=== PATIENT | female | born 1965 | race Caucasian/White ===

== ENCOUNTER → 2017-01-03 | Outpatient (CLI) | payer BC | LOC: LABPAT 08:52 | PROVIDERS: ATTEND Orthopaedic Surgery Orthopaedic Surgery of the Spine | DX: Z01.812 Encounter for preprocedural laboratory examination (principal) | CPT/HCPCS: 87070 ==

== ENCOUNTER 2017-01-14 08:38 | Inpatient (IN) | payer BC, OTHER ==
[~2017-01-14 08:38] MED LIST: BACITRACIN 50,000 UNIT, POLYMYXIN B 500,000 UNIT in SODIUM CHLORIDE 0.9% IRRIGATIO 1,00... IRRIGATION ONE; LIDOCAINE 1% 20 ML VIAL (10MG/ML) FOR IV START INTRADERMA PRN; ONDANSETRON 4 MG/2 ML VIAL IVP ONE; SCOPOLAMINE 1.5MG/72HR PATCH TRANSDERM ONE; ceFAZolin 2 GM in SODIUM CHLORIDE 0.9% 100 ML IVPB ONE
[2017-01-14] MEDS: LACTATED RINGERS 1,000 ML IV SCH (09:39)
[2017-01-14 09:47] LABS: Glucose,Whole Blood 117 mg/dL (75-99)
[2017-01-14] MEDS ORDERED: fentaNYL (PF) 50 MCG/ML 2 ML AMP ONE (11:07)
[2017-01-14] MEDS ORDERED: SUCCINYLCHOLINE CHLORIDE 100 MG/5 ML SYR IV ONE (11:07)
[2017-01-14] MEDS ORDERED: NEOSTIGMINE 1 MG/ML 10 ML VIAL ONE (11:07)
[2017-01-14] MEDS ORDERED: SODIUM CHLORIDE 0.9% IRRIG 1,000 ML BTL IRRIGATION ONE (11:07)
[2017-01-14] MEDS ORDERED: PROPOFOL 10 MG/ML 20 ML VIAL IV ONE (11:07)
[2017-01-14] MEDS ORDERED: GLYCOPYRROLATE 0.2 MG/ML 2 ML VIAL ONE (11:07)
[2017-01-14] MEDS ORDERED: BUPIVACAINE LIPOSOME/PF 1.3% 20 ML, BUPIVACAIN-EPI 0.5%-1:200,000 25 ML, SODIUM CHLORID... MISCELLANE ONE ×3 (11:07)
[2017-01-14] MEDS ORDERED: HEPARIN SODIUM,PORCINE 10,000 UNIT/ML 1 ML VIAL ONE (11:07)
[2017-01-14] MEDS ORDERED: PHENYLEPHRINE-0.9% NACL SYG 1 MG/10 ML SYRINGE ONE (11:07)
[2017-01-14] MEDS ORDERED: ROCURONIUM BROMIDE 10 MG/ML 10 ML VIAL IV ONE (11:07)
[2017-01-14] MEDS ORDERED: LIDOCAINE 1% INJ 10MG/ML (20 ML MDV) ONE (11:07)
[2017-01-14] MEDS ORDERED: HYDROmorphone (PF) 1 MG/ML ONE (11:07)
[2017-01-14] MEDS ORDERED: MIDAZOLAM 2 MG/2 ML VIAL ONE (11:07)
[2017-01-14] MEDS ORDERED: LIDOCAINE 1%-EPI 1:100,000 20 ML VIAL SQ ONE (11:49)
[2017-01-14] MEDS ORDERED: LACTATED RINGERS 1,000 ML IV ONE ×2 (12:00→13:34)
[2017-01-14] MEDS ORDERED: THROMBIN (BOVINE) 5,000 UNIT VIAL TOPICAL ONE (12:04)
[2017-01-14] MEDS ORDERED: GELATIN SPONGE,ABSORB (LARGE) 1 EACH SPONGE TOPICAL ONE (12:04)
--- NOTE | 2017-01-14 14:14 | P.OP ---
Date of Procedure: 01/14/17 Preoperative Diagnosis: Spondylolisthesis L4 5, low back pain, bilateral lower extremity radiculopathy, spondylolysis L4, Postoperative Diagnosis: Same Anesthesia: GETA Pathology: none sent Condition: stable Disposition: PACU Description of Procedure: DESCRIPTION OF PROCEDURE(S): BRIEF OPERATIVE NOTE Preoperative Diagnosis: Spondylolisthesis L4 5, spondylolysis L4, low back pain with radiculopathy Postoperative Diagnosis: Same Procedure: Minimally invasive Laminectomy and decompression L4 5 Minimally invasive Posterior lateral decompression and facet fusion L4 5 Minimally invasive Transforaminal lumbar interbody fusion for a 360 fusion L4 5 Discectomy for decompression L4 5 Placement of interbody graft L4 5 Bone marrow aspiration from the right iliac crest taken using a bone marrow aspiration device Local autogenous bone grafting Use of Cell Saver Use of bone graft extenders Surgeon: Dr. Han Industrial [employer] Fitter Helper: Jed King is present throughout the entire the case persistence during positioning, dissection, exposure, visualization, and all crucial elements of the case as well as closure. Anesthesia: General anesthesia Estimated blood loss: Approximately 250 mL with 125 given back through Cell Saver Complications: None apparent Components implanted: K2M minimally invasive Myra screw system with a metal interbody cage measuring 12 mm and 1 large osteoamp cancellus sponge to supplemental local autogenous bone graft and bone marrow aspirate Disposition: To recovery room in good stable condition. OPERATIVE INDICATIONS The patient has had long-standing issues in their lower back and lower extremities. She had a herniated disc at L2-3 and the past and underwent laminectomy and discectomy for that approximately 2 years ago. She has continued have low back pain and was also found have instability at L4 5 with spondylolysis and spondylolisthesis at that level. She is not having improvement despite extensive conservative treatment and aggressive conservative management. The patient has been through conservative treatment. She is continued to have significant debility and inability to work and perform regular activity for any significant time. We discussed various treatment options including surgery, and the patient wishes to proceed with surgery We discussed the risk, patient's alternatives and benefits of surgery including but not limited to, risk of bleeding risk of infection, risk of need for further surgery, risk of decreased, loss of motion, muscle function, malunion nonunion, hardware failure, nerve damage, paralysis, heart attack, blindness and . OPERATIVE SUMMARY After discussing all the risks, patient alternatives and benefits at length, the patient elected to proceed with surgical intervention, signed informed consent, and presented for their procedure. The patient was seen and examined in the preoperative holding area and the surgical site was marked. The patient was given antibiotics and brought to the operating room. The patient was sedated and intubated by anesthesia in standard fashion. The patient was positioned on to the operating room table in a prone position on the appropriate frame which was well-padded and well molded. We were careful to pad any bony prominences and pressure points. We were careful to maintain the patient's cervical spine and good neutral alignment and position throughout. The patient was prepped and draped in a normal standard fashion. An appropriate timeout and keystone protocol performed. We were able to proceed with the surgery. The local wound area was infiltrated with local anesthetic. I was able utilize C-arm guidance to establish appropriate position over the pedicles bilaterally at the appropriate levels at L4 5. With the appropriate levels confirmed was able to make small stab incisions over the appropriate pedicle sites bilaterally. Utilizing C-arm in his house able to establish a Jamshidi needle over the lateral aspect of the pedicle and advanced the trocar into the pedicle being careful not to breech superiorly inferiorly medially or laterally. Position was confirmed regularly with AP and lateral images on C- arm. I was able to establish the trocar into the pedicle appropriately into the posterior aspect of the vertebral body bilaterally at the appropriate levels at L4 and 5 bilaterally. This was done at each of the pedicle positions and each of the vertebrae. I was able place the guidewire into the trocar and into the vertebral body appropriately under C-arm guidance. Dissection was taken down over the wire to the appropriate starting position for the screw placed. The appropriate length screw was chosen, threaded over the guidewire and screwed appropriately into the pedicle and vertebral body under C-arm guidance in excellent alignment and position with good bony purchase. This is done at each of the screw sites at the appropriate levels at L4 5 bilaterally. With the screws intact I extended the incision to connect the screw hole sites on the left. I dissected down to establish access over the pars and lamina to the base of the spinous process. I was able to expose the facet joint. The capsule the facet was taken down and showed some facet arthrosis at the joint. Note was made of a spondylolysis at L4 on the left. I was able to use a combination of curettes and Kerrison rongeurs and a high-speed drill to take down the facet joint and do a facetectomy. Partial laminectomy was also performed. I was able get excellent foraminal decompression and central decompression with undermining across midline to perform a laminectomy centrally and contralaterally. As able get good central decompression. The ligamentum flavum was taken down to further decompress centrally and at bilateral neural foramen. I was able to expose the disc space and visualize the traversing nerve root. No was made of some disc protrusion at the level causing further compression of the nerve root. I was able to establish a annulotomy at the appropriate level protecting soft tissue and neural structures. No was made of some disc desiccation at the disc. I performed a complete discectomy with accommodation of curettes and rasps and scrapers. I was able get good endplate preparation at the disc space. I sized for the appropriate size interbody spacer protecting the soft tissue and neural structures. The wound was copiously irrigated and suctioned dry. There is no evidence of any dural tear or leak. I was able to pack the disc space with local autogenous bone graft as well as a small amount of infuse which was also placed into the interbody cage itself. Protecting the soft tissue structures and neural structures I was able place the interbody cage in good alignment and good position with good fit and fill at the interbody space. His issues was confirmed with C-arm guidance. Good hemostasis maintained. There is no evidence of any dural tear or leak. The wound was irrigated and suctioned dry. With the hardware intact, intraoperative C-arm imaging was again taken which showed good alignment and position of the hardware at the appropriate levels at L4 5. We were then able to measure, contour and place the rods and appropriate hardware bilaterally. I was able to place capcrews, tighten them down, and shear them off appropriately. The sheared portion was counted and accounted for. With this intact I was able to place the local autogenous bone graft with additional bone graft enhancer as necessary into the decorticated facet joints on the right and decorticated lateral aspects laterally. The remainder of the bone graft was placed over the facet joint on the contralateral side after taking down the facet joint capsule. With the bone graft intact, a stable construct, and good decompression at the appropriate levels, we were able to proceed with closure. Good hemostasis was maintained. There is no evidence of dural tear or leak. The fascia was closed for a watertight closure. he subcuticular tissue was closed with absorbable suture. The wound was cleaned and dried and dressed with the appropriate dressing. The drapes were broken down. The patient was gently rolled back onto their hospital bed being careful to maintain their cervical spine and good neutral alignment and position. They were woken up by anesthesia, extubated, and brought to the recovery room in good stable condition. The patient will be admitted to the hospital for appropriate postoperative care , medical management and monitoring. We will continue to follow them closely about the postoperative course.
[2017-01-14] MEDS ORDERED: BENZOCAINE/MENTHOL LOZENG 1 EACH LOZENGE MUCOUS MEM PRN (14:15)
[2017-01-14] MEDS ORDERED: HYDROmorphone 1 MG/ML 1 ML SYRINGE IVP PRN (14:15)
[2017-01-14] MEDS ORDERED: HYDROcodone/APAP 5-325MG 1 EACH TAB PO PRN (14:15)
--- NOTE | 2017-01-14 14:15 | FL ---
EXAMINATION TYPE: FL guidance operating room DATE OF EXAM: 01/14/2017 2:03 PM HISTORY: Flouroscopy time 1 minute and 58 seconds of fluoroscopy provided. IMPRESSION: 1. Fluoroscopy time.
--- NOTE | 2017-01-14 14:15 | XR ---
EXAM TYPE: LUMBAR SPINE X RAY SERIES COMPARISON: NONE HISTORY: Postop TECHNIQUE: One view are submitted. FINDINGS: Postoperative image demonstrates postsurgical change in near anatomic alignment. Due to the technique utilized resolution is limited.. IMPRESSION: 1. Postoperative change.
[2017-01-14] MEDS ORDERED: HYDROcodone/APAP 7.5-325MG 1 EACH TAB PO PRN (14:17)
[2017-01-14 14:37] LABS: Glucose,Whole Blood 169 mg/dL (75-99)
[2017-01-14] MEDS: ONDANSETRON 4 MG/2 ML VIAL IVP PRN (14:45)
[2017-01-14] MEDS: HYDROmorphone 1 MG/ML 1 ML SYRINGE IVP PRN ×2 (14:45→18:14)
[2017-01-14 16:38] VITALS: BMI 40.0
[2017-01-14] MEDS: DIAZEPAM 5 MG TAB PO PRN (16:43)
[2017-01-14] MEDS: PANTOPRAZOLE 40 MG/10 ML VIAL IVP SCH (17:41)
[2017-01-14] MEDS: ceFAZolin 2 GM in SODIUM CHLORIDE 0.9% 100 ML IVPB SCH (17:41)
[2017-01-14] MEDS: SODIUM CHLORIDE 0.9% 1,000 ML IV SCH (17:42)
[2017-01-14 17:46] LABS: Glucose,Whole Blood 230 mg/dL (75-99)
[2017-01-14] MEDS: INSULIN LISPRO (humaLOG) 300 UNIT/3 ML VIAL SQ SCH ×2 (18:09→20:59)
[2017-01-14 20:36] LABS: Glucose,Whole Blood 193 mg/dL (75-99)
[2017-01-14] MEDS: GLIMEPIRIDE 4 MG TAB PO SCH (20:59)
[2017-01-14] MEDS: metFORMIN 500 MG TAB PO SCH (20:59)
--- NOTE | 2017-01-14 21:16 | CONS ---
DATE OF CONSULTATION: 01/14/2017 REASON FOR CONSULTATION: Diabetes mellitus and other medical issues requested by Dr. Han. HISTORY OF PRESENT ILLNESS: This 51-year-old woman with a past medical history of multiple medical problems including diabetes mellitus type 2, history of degenerative joint disease, history of back surgery, history of nicotine dependence being followed by Dr. Mcdonald in the outpatient setting underwent minimally invasive laminectomy decompression at L4-5 and also discectomy decompression and placement of interbody graft by Dr. Han, postoperatively patient is being closely monitored. Patient has some nausea. The patient also has diabetes mellitus as mentioned earlier. Blood sugar most recent blood sugars found to be at 116 at 1430. There is no history of fever, rigors or chills. No history of headache, loss of consciousness or seizures. The patient is slightly drowsy at this time postop. PAST MEDICAL HISTORY: History of diabetes mellitus Type 2, history for degenerative joint disease, history of diabetic retinopathy. Medications prior to admission include: 1. Metformin 1000 mg p.o. b.i.d. 2. Vitamin B capsule p.o. daily. 3. Lyrica 75 milligrams p.o. daily. 4. Actos 45 mg p.o. daily. 5. [place] 7.5 q.8 p.r.n. 6. Glimepiride 4 mg p.o. b.i.d. 7. Vitamin D2 50,000 q.7 days. ALLERGIES: None. FAMILY HISTORY: History of cancer in the family, history of smoking, currently ongoing. No history of alcohol intake. REVIEW OF SYSTEMS: ENT: No diminished vision. No diminished hearing. CARDIOVASCULAR: S1, S2 muffled. No S3, no S4. RESPIRATORY: no cough or hemoptysis. GI: As mentioned earlier. : No dysuria. Nervous system: as mentioned earlier. Allergy/immunology: No asthma or hayfever. MUSCULOSKELETAL: As mentioned hematology. HEMATOLOGY/ONCOLOGY: No history of anemia. ENDOCRINE: Diabetes. CONSTITUTIONAL: As mentioned earlier. DERMATOLOGY: Negative. Rheumatology: Negative. PSYCHIATRY: As mentioned earlier. PHYSICAL EXAMINATION: Alert and oriented times three. Pulse 76, blood pressure 120/70. Respiratory rate 20, temperature 97.8, pulse ox 98% on 2 liters. HEENT: Conjunctivae normal. Oral mucosa moist. NECK: No jugular venous distention. No carotid bruit. No lymph node enlargement. CARDIOVASCULAR: S1, S2 muffled. RESPIRATORY: Breath sounds diminished at the bases. No rhonchi, no crackles. ABDOMEN: Soft and nontender. Obese. No mass palpable. LEGS: No edema. No swelling. CENTRAL NERVOUS SYSTEM: Higher functions as mentioned earlier. Moves all four limbs. No focal deficits. LYMPHATICS: No lymph nodes palpable in the neck, axillae or groin. SKIN: No ulcer, rash or bleeding. BACK: Examination of the back status post surgery. Lab investigation at this time shows glucose 117, the previous the most recent labs are CBC within normal limits on 12/27 chemistry showed hemoglobin A1C was 8.2. Otherwise, cholesterol 201. LDL is 117. ASSESSMENT: 1. Status post laminectomy and decompression of L4 minimally invasive 5 discectomy decompression for spondylolisthesis L4-5 back pain and bilateral lower extremity radiculopathy. 2. Postoperative nausea. 3. Diabetes mellitus type 2. 4. Hyperlipidemia. 5. Obesity body mass index 40. 6. Diabetic retinopathy. 7. History of degenerative joint disease. 8. History of history nicotine dependence, continued ongoing. 9. FULL CODE. RECOMMENDATION: In this 51-year-old woman who presented with multiple complex medical issues we will monitor the patient closely. Continue the current medications. Continue symptomatic treatment. Otherwise at this time, I recommend to resume the home medications. Accu-Cheks a.c. and at bedtime NovoLog scale. Incentive spirometry. DVT prophylaxis. We will follow the patient closely with you and patient will be asked to follow-up with Dr. Mcdonald after discharge and continue to monitor. Further recommendations to follow. Protonix may be advised symptomatic for symptomatic nausea. Once again, the prognosis guarded. Further recommendations to follow. See orders for further details. MTDD
[2017-01-15] MEDS: ONDANSETRON 4 MG/2 ML VIAL IVP PRN (00:20)
[2017-01-15] MEDS: HYDROmorphone 1 MG/ML 1 ML SYRINGE IVP PRN ×3 (00:20→15:01)
[2017-01-15] MEDS: ceFAZolin 2 GM in SODIUM CHLORIDE 0.9% 100 ML IVPB SCH (03:56)
[2017-01-15] MEDS: SODIUM CHLORIDE 0.9% 1,000 ML IV SCH (07:09)
[2017-01-15] MEDS: LACTATED RINGERS 1,000 ML IV SCH (07:09)
[2017-01-15 07:11] LABS: Glucose,Whole Blood 140 mg/dL (75-99)
[2017-01-15] MEDS: PANTOPRAZOLE 40 MG/10 ML VIAL IVP SCH (07:11)
[2017-01-15] MEDS: PREGABALIN 75 MG CAP PO SCH (07:12)
[2017-01-15] MEDS: GLIMEPIRIDE 4 MG TAB PO SCH ×2 (07:12→21:41)
[2017-01-15] MEDS: metFORMIN 500 MG TAB PO SCH ×2 (07:12→21:41)
[2017-01-15] MEDS: DIAZEPAM 5 MG TAB PO PRN ×2 (07:21→13:45)
[2017-01-15] MEDS: INSULIN LISPRO (humaLOG) 300 UNIT/3 ML VIAL SQ SCH ×5 (07:21→21:45)
[2017-01-15] MEDS: HYDROcodone/APAP 5-325MG 1 EACH TAB PO PRN ×3 (09:08→20:55)
[2017-01-15 09:31] LABS: Basophils % (A) 0 %; CH 30.7; CHCM 32.8; Eosinophils % (A) 0 %; HCT 34.4 % (34.0-46.0); Luc # (Auto) 0.26; Luc % (Auto) 2; Lymphocytes # (A) 2.2 k/uL (1.0-4.8); Lymphocytes % (A) 20 %; MCH 30.4 pg (25.0-35.0); MCHC 32.4 g/dL (31.0-37.0); Mean Platelet Volume 8.4; Monocytes # (A) 0.6 k/uL (0-1.0); Monocytes % (A) 6 %; Neutrophils # (A) 7.6 k/uL (1.3-7.7); Neutrophils % (A) 71 %; RBC 3.65 m/uL (3.80-5.40); RDW 13.4 % (11.5-15.5); WBC 10.7 k/uL (3.8-10.6); WBC (Perox) 11.67
[2017-01-15 09:33] LABS: HGB 11.1 gm/dL (11.4-16.0)
[2017-01-15 09:35] LABS: Anion Gap 11 mmol/L; Blood Urea Nitrogen 15 mg/dL (7-17); Calcium 9.6 mg/dL (8.4-10.2); Carbon Dioxide 23 mmol/L (22-30); Chloride 103 mmol/L (98-107); Glucose 122 mg/dL (74-99); Non-African American GFR(MDRD) >60 (>60 ml/min/1.73 sqM); Potassium 4.5 mmol/L (3.5-5.1); Sodium 137 mmol/L (137-145)
[2017-01-15 09:56] LABS: Glucose,Whole Blood 132 mg/dL (75-99)
--- NOTE | 2017-01-15 11:08 | P.PN ---
Progress Note - Text Postoperative day #1 Patient is seen and examined today at bedside. The patient has some pain around the surgical site as expected. Pain is being controlled with medication. She has been able get out of bed and has been tolerating some of her fruits in her diet. Her legs are doing well. She's not having nausea. She got having any vision issues. Physical Exam Afebrile with stable vital signs Abdomen is soft nontender. Chest has good excursion deep and space expiration She has a very superficial small 1 cm abrasion inferior to her left eye. It seems to be doing well. There is no erythema. It is not painful for her. The incision site is clean dry and intact. No erythema there is no purulence. Dressing is intact without any evidence of infection at her back. Extremities have not had neurologic change from prior to surgery. She has sustained dorsal to plantar flexion and extensor hallucis longus Calves and thighs were soft nontender without evidence of DVT. Assessment/Plan Postoperative day #1 status post decompression and fusion L4 5 with minimally invasive approach for her spondylolisthesis. Patient is progressing as expected from the surgery. She is making appropriate progress and feels that she might be able to go home tomorrow on Thursday. She will need a new prescription for pain medicine for home We will continue to increase the patient's mobilization with therapy. We will continue pain control with oral or IV medications. We'll continue to follow patient closely.
[2017-01-15 11:09] LABS: Glucose,Whole Blood 237 mg/dL (75-99)
[2017-01-15] MEDS ORDERED: FUROSEMIDE 10 MG/ML 2 ML VIAL IV ONE (11:28)
[2017-01-15] MEDS: B COMPLEX-VIT C-VIT E-ZINC 1 EACH TAB PO SCH (11:40)
[2017-01-15] MEDS: PIOGLITAZONE 45 MG TAB PO SCH (11:40)
[2017-01-15 13:20] LABS: Appearance,Urine Clear (Clear); Bilirubin,Urine Negative (Negative); Glucose,Urine (UA) Negative (Negative); Ketones,Urine Negative (Negative); Leukocyte Esterase,Urine Negative (Negative); Mucus,Urine Rare /hpf; Nitrite,Urine Negative (Negative); Particle Count 613; Protein,Urine Negative (Negative); RBC,Urine 1 /hpf (0-5); Specific Gravity,Urine 1.004 (1.001-1.035); Squamous Epithelial Cell,Urine <1 /hpf (0-4); UA Billing (MACRO vs. MICRO) MICRO; Urobilinogen,Urine <2.0 mg/dL (<2.0); WBC,Urine 1 /hpf (0-5)
--- NOTE | 2017-01-15 15:06 | P.PN ---
Subjective Date of service 01/15/2017. Progress note being dictated for Dr. Briones. Interval history: This a 51-year-old female status post laminectomy, decompression, fusion L4 5, and multiple other medical issues. Today sitting up in chair, minimal diet intake at breakfast, denies nausea or vomiting. Lunch intake much improved up to 75%. No bowel movement, no flatus. Pain controlled. Reports occasionally using Incentive spirometer and is able to get it up to 2000. Denies any chest pain, palpitations or increased shortness of breath. Objective - Vital Signs Vital signs: Vital Signs Temp 98.9 F 01/15/17 07:47 Pulse 85 01/15/17 07:47 Resp 18 01/15/17 07:47 BP 117/73 01/15/17 07:47 Pulse Ox 96 01/15/17 07:47 Intake & Output 01/14/17 01/15/17 01/15/17 18:59 06:59 18:59 Intake Total 1502 Output Total 710 1250 500 Balance 792 -1250 -500 Weight 105 kg Intake: IV 1502 Output: Urine 460 1250 500 Uretheral (Correa) 500 Estimated Blood Loss 250 Other: Voiding Method Indwelling Catheter Indwelling Catheter - Exam PHYSICAL EXAM: VITAL SIGNS: As above GENERAL: [Sitting up in chair, no acute distress] HEENT: [Pupils equal conjunctiva normal.] NECK: [Supple, no JVD] RESPIRATORY EFFORT:[Normal] LUNGS: [Clear to auscultation, no wheezes crackles or rhonchi] CARDIOVASCULAR[regular S1 and S2, positive edema] GI: [Abdomen soft, nontender, positive bowel sounds.] PSYCH: [Alert and oriented -3, mood and affect normal.] SKIN: [Mild upper and lower extremity edema] NEURO: [No focal deficits, moves all 4 extremities, strength and sensation intact] - Labs CBC & Chem 7: 01/15/17 08:29 01/15/17 08:29 Labs: Abnormal Lab Results - Last 24 Hours (Table) 01/14/17 01/14/17 01/14/17 Range/Units 14:31 17:44 20:31 WBC (3.8-10.6) k/uL RBC (3.80-5.40) m/uL Hgb (11.4-16.0) gm/dL Glucose (74-99) mg/dL POC Glucose (mg/dL) 169 H 230 H 193 H (75-99) mg/dL 01/15/17 01/15/17 01/15/17 Range/Units 07:10 08:29 08:29 WBC 10.7 H (3.8-10.6) k/uL RBC 3.65 L (3.80-5.40) m/uL Hgb 11.1 L D (11.4-16.0) gm/dL Glucose 122 H (74-99) mg/dL POC Glucose (mg/dL) 140 H (75-99) mg/dL 01/15/17 01/15/17 Range/Units 09:53 11:08 WBC (3.8-10.6) k/uL RBC (3.80-5.40) m/uL Hgb (11.4-16.0) gm/dL Glucose (74-99) mg/dL POC Glucose (mg/dL) 132 H 237 H (75-99) mg/dL Assessment and Plan Plan: 1. [] Status post decompression and fusion L4-5 ,minimally invasive, secondary to spondylothisthesis and bilateral lower extremity radiculopathy. 2. [Postoperative nausea, improving]. 3. [Diabetes mellitus type 2]. 4. [Hyperlipidemia]. 5. [Obesity, BMI 40]. 6. [Diabetic retinopathy]. 7. [Degenerative joint disease]. 8. Ongoing nicotine dependence Plan: Continue on current medication regime ,monitoring and symptomatic treatment. Smoking cessation readdressed. Aggressive pulmonary toileting with incentive spirometer use, rationale reinforced. PT OT, pain management as per orthopedic surgery. Discharge planning in progress for tomorrow per orthopedic surgery. The impression and plan of care has been dictated as directed. : I performed a H&P examination of this patient and discussed the same with the dictator. I agree with the dictator's note. Any additional findings/opinions/ etc. will be noted.
[2017-01-15 17:03] LABS: Glucose,Whole Blood 216 mg/dL (75-99)
--- NOTE | 2017-01-15 19:11 | PN ---
DATE OF SERVICE: 01/15/2017 This 51-year-old woman who was admitted after back surgery is improving significantly. Seen and evaluated the patient along with the nurse practitioner. Please refer to the nurse practitioner notes and impression documented for further information.
[2017-01-15 20:34] LABS: Glucose,Whole Blood 135 mg/dL (75-99)
[2017-01-16] MEDS: HYDROcodone/APAP 5-325MG 1 EACH TAB PO PRN ×3 (02:59→17:24)
[2017-01-16 07:00] LABS: Glucose,Whole Blood 175 mg/dL (75-99)
[2017-01-16] MEDS ORDERED: PANTOPRAZOLE 40 MG TABLET PO SCH (07:30)
[2017-01-16] MEDS: B COMPLEX-VIT C-VIT E-ZINC 1 EACH TAB PO SCH (08:06)
[2017-01-16] MEDS: metFORMIN 500 MG TAB PO SCH (08:06)
[2017-01-16] MEDS: PIOGLITAZONE 45 MG TAB PO SCH (08:06)
[2017-01-16] MEDS: GLIMEPIRIDE 4 MG TAB PO SCH (08:06)
[2017-01-16] MEDS: PREGABALIN 75 MG CAP PO SCH (08:06)
[2017-01-16] MEDS: INSULIN LISPRO (humaLOG) 300 UNIT/3 ML VIAL SQ SCH ×6 (08:07→17:23)
--- NOTE | 2017-01-16 08:52 | P.DS ---
Providers Date of admission: 01/14/17 08:38 Expected date of discharge: 01/16/17 Attending physician: Jimmy Han Consults: 01/14/17 14:15 Consult Physician Routine Consulting Provider: Duyen Briones Consult Reason/Comments: Medical management Do you want consulting provider notified?: Already Contacted Primary care physician: Jimmy Han - Discharge Diagnosis(es) (1) Arthrodesis status Current Visit: Yes Status: Acute (2) Spondylolisthesis at L4-L5 level Current Visit: Yes Status: Acute (3) Low back pain Current Visit: Yes Status: Acute (4) Lumbar spondylolysis Current Visit: Yes Status: Acute (5) Radicular pain of right lower extremity Current Visit: No Status: Acute Hospital Course: This is a pleasant 51-year-old female who presented with L4-5 spondylolisthesis , L4 spondylolysis, low back pain, and lower extremity radiculopathy who failed outpatient conservative therapy. She admitted for a minimally invasive posterior lateral decompression and fusion with transforaminal lumbar interbody fusion L4-5. The patient tolerated the procedure well and did well postoperatively. She currently is not experiencing any significant lower extremity radiculopathy or weakness. She has been able to ambulate the hallways. She continues to have some hand surgical sites that has been controlled with medications. Condition on day of discharge stable. Patient will be discharged home. Patient was cleared preoperatively for surgery by Dr. Mcdonald. Patient currently denies any nausea, vomiting, fever, or chills. Patient is eating and voiding freely without difficulty. Patient may shower Tegaderm dressing intact. Patient may remove Tegaderm dressing in 3 days and shower without a dressing at that time. Patient should keep Steri-Strips intact and allow them to fall off naturally. Patient should refrain from driving until at least after their first follow-up appointment in the office. Patient should avoid excessive bending, lifting, and twisting; no lifting greater than 10 pounds. Patient's prescription for Holbrook 7.5 mg/325 mg will run out prior to her next appointment. She will be given a refill prescription for Holbrook 7.5 mg/325 mg at discharge. She may resume her other home medications at discharge while avoiding anti-inflammatories over the next 6 weeks. Physical Exam on day of discharge: Patient is awake, alert, and oriented 3 Vital signs stable Good chest excursion with deep inspiration and expiration Abdomen soft nontender No signs or symptoms of DVT; no calf pain Extensor hallucis longus, plantarflexion, and dorsiflexion positive sustained bilateral lower extremities Tegaderm and Telfa removed during physical examination and changed to new Tegaderm and Telfa Evidence of dried blood over the Steri-Strips of the left incision with no evidence of active drainage Incisions are dry and intact; no erythema, purulence, or signs of infection Pneumatic cuffs intact bilateral lower extremities demonstrates a very superficial Evidence of a small 1 cm abrasion at the inferior left eye Procedures: Minimally invasive posterior lateral decompression and fusion with transforaminal lumbar interbody fusion L4-5 Patient Condition at Discharge: Stable Plan - Discharge Summary New Discharge Prescriptions: HYDROcodone/APAP 7.5-325MG [Holbrook 7.5-325] 1 each PO Q6HR PRN #90 tab PRN Reason: Pain Discharge Medication List Glimepiride 4 mg PO BID 09/02/14 [History] metFORMIN HCL [Glucophage] 1,000 mg PO BID 09/02/14 [History] Ergocalciferol [Vitamin D2 (DRISDOL)] 50,000 unit PO Q7D 01/06/17 [History] Pioglitazone [Actos] 45 mg PO DAILY 01/06/17 [History] Pregabalin [Lyrica] 75 mg PO DAILY 01/06/17 [History] Vitamin B Complex 1 cap PO DAILY 01/06/17 [History] HYDROcodone/APAP 7.5-325MG [Holbrook 7.5-325] 1 each PO Q6HR PRN #90 tab 01/16/17 [ Rx] Follow up Appointment(s)/Referral(s): [place] Mcdonald DO [Family Provider] - 1 Week Jed Lundberg PAC [[employer]] - 2 Weeks (Patient may follow-up with Jed Lundberg PA-C or Dr. Edmar Han at [facility] in 2-3 weeks following discharge. ) Ambulatory/Diagnostic Orders: Complete Blood Count w/diff [LAB.AMB] Location: Determined By Patient Activity/Diet/Wound Care/Special Instructions: 1. Patient may shower Tegaderm dressing intact. 2. Patient may remove Tegaderm dressing in 3 days and shower without a dressing at that time. 3. Patient should keep Steri-Strips intact and allow them to fall off naturally. 4. Patient should refrain from driving until at least after their first follow- up appointment in the office. 5. Patient should avoid excessive bending, twisting, and lifting; no lifting greater than 10 pounds 6. Do not soak in tub Diet: Consistent carb Accu-Cheks before meals and at bedtime Discharge Disposition: HOME SELF-CARE
[2017-01-16 11:08] LABS: Glucose,Whole Blood 127 mg/dL (75-99)
[2017-01-16 15:31] VITALS: TEMP 98.7
[2017-01-16 17:00] LABS: Glucose,Whole Blood 205 mg/dL (75-99)
[2017-01-16 17:29] VITALS: BP 120/72; PULSE 102; RESP 16
--- NOTE | 2017-01-16 20:02 | PN ---
DATE OF SERVICE: 01/16/2017 This 51-year-old woman who was admitted after back surgery, is improving significantly. No chest pain, no palpitation. No fever. On exam, alert and oriented x3. Pulse 97, blood pressure 88/52, respirations 18, temperature 98.7, pulse ox 97% on room air. HEENT: Conjunctivae normal. NECK: No jugular venous distention. CARDIOVASCULAR: S1 and S2, muffled. RESPIRATORY: Breath sounds diminished at the bases. No rhonchi, no crackles. ABDOMEN: Soft, nontender. No mass palpable. LEGS: No edema, no swelling. NERVOUS SYSTEM: No focal deficits. LABS: At this time, glucose 135, 271, 277. Other labs are noted. ASSESSMENT: 1. Status post decompression and fusion L4-5 minimally invasive secondary to spondylosis and bilateral lower extremity radiculopathy. 2. Possible nausea and vomiting. 3. Relative hypotension. 4. Diabetes mellitus type 2. 5. Hyperlipidemia. 6. Obesity with BMI of 40. 7. Diabetic retinopathy. 8. Degenerative joint disease. 9. Ongoing nicotine dependence. RECOMMENDATIONS AND DISCUSSION: I recommend to continue the current medications, continue monitoring and symptomatic treatment. Otherwise, closely follow blood sugars. Outpatient follow-up. Further recommendations to follow per Orthopedic Surgery.
== END 2017-01-16 18:05 | disposition home or self-care (01) | DRG 460 ==
LOC: 2ORMAIN 08:38 → 5MS5E 14:13
PROVIDERS: ADMIT Orthopaedic Surgery Orthopaedic Surgery of the Spine; ATTEND Orthopaedic Surgery Orthopaedic Surgery of the Spine
PROC: 07DR3ZZ Extraction of Iliac Bone Marrow, Percutaneous Approach (ICD-10-PCS; principal; 2017-01-14 10:15)
PROC: 0ST20ZZ Resection of Lumbar Vertebral Disc, Open Approach (ICD-10-PCS; principal; 2017-01-14 10:15)
PROC: 0SG007J Fusion of Lumbar Vertebral Joint with Autologous Tissue Substitute, Posterior Approach, Anterior Column, Open Approach (ICD-10-PCS; principal; 2017-01-14 10:15)
PROC: 0SG00A1 (ICD-10-PCS; principal; 2017-01-14 10:15)
DX: M47.26 Other spondylosis with radiculopathy, lumbar region (principal); Z68.41 Body mass index [BMI] 40.0-44.9, adult; E11.319 Type 2 diabetes mellitus with unspecified diabetic retinopathy without macular edema; E66.9 Obesity, unspecified; M43.16 Spondylolisthesis, lumbar region; E78.5 Hyperlipidemia, unspecified; M96.1 Postlaminectomy syndrome, not elsewhere classified; M19.90 Unspecified osteoarthritis, unspecified site; Z79.84 Long term (current) use of oral hypoglycemic drugs; Z79.899 Other long term (current) drug therapy; Z72.0 Tobacco use
CPT/HCPCS: 72100; 80048; 81001; 81025; 83036; 85025; 86850; 86891; 86900; 86901; 87086

== ENCOUNTER → 2017-07-01 | Outpatient (CLI) | payer BC ==
--- NOTE | 2017-07-02 10:46 | MM ---
Reason for exam: screening (asymptomatic). Last mammogram was performed 1 year ago. History: Patient is nulliparous. Family history of breast cancer in mother at age 55. Physical Findings: A clinical breast exam by your physician is recommended on an annual basis and results should be correlated with mammographic findings. MG Screening Mammo w CAD Bilateral CC and MLO view(s) were taken. Prior study comparison: June 30, 2016, bilateral MG screening mammo w CAD. June 22, 2015, bilateral MG screening mammo w CAD. The breast tissue is almost entirely fat. There is no discrete abnormality. No significant changes when compared with prior studies. ASSESSMENT: Negative, BI-RAD 1 RECOMMENDATION: Routine screening mammogram of both breasts in 1 year.
== END | disposition home or self-care (01) ==
LOC: RADMAMWWP 07:11
PROVIDERS: ATTEND Family Medicine
DX: Z12.31 Encounter for screening mammogram for malignant neoplasm of breast (principal)

== ENCOUNTER → 2018-07-07 | Outpatient (CLI) | payer BC ==
--- NOTE | 2018-07-08 13:19 | MM ---
Reason for exam: screening (asymptomatic). Last mammogram was performed 1 year ago. History: Patient is nulliparous. Family history of breast cancer in mother at age 55. Physical Findings: A clinical breast exam by your physician is recommended on an annual basis and results should be correlated with mammographic findings. MG 3D Screening Mammo W/Cad Bilateral CC and MLO view(s) were taken. Prior study comparison: July 01, 2017, bilateral MG screening mammo w CAD. June 30, 2016, bilateral MG screening mammo w CAD. There are scattered fibroglandular densities. No significant changes when compared with prior studies. ASSESSMENT: Negative, BI-RAD 1 RECOMMENDATION: Routine screening mammogram of both breasts in 1 year.
== END | disposition home or self-care (01) ==
LOC: RADMAMWWP 07:09
PROVIDERS: ATTEND Family Medicine
DX: Z12.31 Encounter for screening mammogram for malignant neoplasm of breast (principal)
CPT/HCPCS: 77063; 77067

== ENCOUNTER → 2019-07-08 | Outpatient (CLI) | payer BC ==
--- NOTE | 2019-07-11 09:26 | MM ---
Reason for exam: screening (asymptomatic). Last mammogram was performed 1 year ago. History: Patient is nulliparous. Family history of breast cancer in mother at age 55. Physical Findings: A clinical breast exam by your physician is recommended on an annual basis and results should be correlated with mammographic findings. MG 3D Screening Mammo W/Cad Bilateral CC and MLO view(s) were taken. Prior study comparison: July 07, 2018, bilateral MG 3d screening mammo w/cad. July 01, 2017, bilateral MG screening mammo w CAD. There are scattered fibroglandular densities. There is chronic nodularity in the left breast. No significant changes when compared with prior studies. ASSESSMENT: Negative, BI-RAD 1 RECOMMENDATION: Routine screening mammogram of both breasts in 1 year.
== END | disposition home or self-care (01) ==
LOC: RADMAMWWP 07:25
PROVIDERS: ATTEND Family Medicine
DX: Z12.31 Encounter for screening mammogram for malignant neoplasm of breast (principal)
CPT/HCPCS: 77063; 77067

== ENCOUNTER → 2020-08-09 | Outpatient (CLI) | payer BC ==
--- NOTE | 2020-08-09 10:03 | MM ---
Reason for exam: screening (asymptomatic). Last mammogram was performed 1 year and 1 month ago. History: Patient is postmenopausal and is nulliparous. Family history of breast cancer in mother at age 55. Physical Findings: A clinical breast exam by your physician is recommended on an annual basis and results should be correlated with mammographic findings. MG 3D Screening Mammo W/Cad Bilateral CC and MLO view(s) were taken. Prior study comparison: July 08, 2019, bilateral MG 3d screening mammo w/cad. July 07, 2018, bilateral MG 3d screening mammo w/cad. There are scattered fibroglandular densities. Tiny nodularity in the left breast 3-4mm middle position inferior lateral aspect MLO 15/90 and CC 17/74. This finding is changed when compared with previous exams. ASSESSMENT: Incomplete: need additional imaging evaluation, BI-RAD 0 RECOMMENDATION: Special view mammogram and ultrasound of the left breast. [facility] will attempt to contact patient to return for supplemental views and ultrasound.
== END | disposition home or self-care (01) ==
LOC: RADMAMWWP 07:51
PROVIDERS: ATTEND Family Medicine
DX: Z12.31 Encounter for screening mammogram for malignant neoplasm of breast (principal)
CPT/HCPCS: 77063; 77067

== ENCOUNTER → 2020-08-17 | Outpatient (CLI) | payer BC ==
--- NOTE | 2020-08-17 11:42 | MM ---
Reason for exam: additional evaluation requested from abnormal screening. Last mammogram was performed less than 1 month ago. History: Patient is postmenopausal and is nulliparous. Family history of breast cancer in mother at age 55. Physical Findings: Nurse did not find any significant physical abnormalities on exam. MG 3D Work Up W/Cad LT Spot compression CC, spot compression MLO, and LM view(s) were taken of the left breast. Prior study comparison: August 09, 2020, bilateral MG 3d screening mammo w/cad. July 08, 2019, bilateral MG 3d screening mammo w/cad. Finding: There is a persisting 4 mm equal density (isodense), circumscribed oval mass located 6 cm from the nipple in the lower outer quadrant, middle position of the left breast. New finding since July 08, 2019. These results were verbally communicated with the patient and result sheet given to the patient on 08/17/20. ASSESSMENT: Incomplete: need additional imaging evaluation, BI-RAD 0 RECOMMENDATION: Ultrasound of the left breast.
--- NOTE | 2020-08-17 11:43 | USB ---
Reason for exam: additional evaluation requested from abnormal screening. History: Patient is postmenopausal and is nulliparous. Family history of breast cancer in mother at age 55. US Breast Workup Limited LT Left limited breast ultrasound including focal area of concern, retroareolar and axilla demonstrates no cystic or solid lesion seen. These results were verbally communicated with the patient and result sheet given to the patient on 08/17/20. ASSESSMENT: Negative, BI-RAD 1 RECOMMENDATION: Follow-up diagnostic mammogram of the left breast in 6 months.
== END | disposition home or self-care (01) ==
LOC: RADMAMWWP 09:40
PROVIDERS: ATTEND Family Medicine
DX: R92.8 Other abnormal and inconclusive findings on diagnostic imaging of breast (principal)
CPT/HCPCS: 77061; 77065

== ENCOUNTER → 2021-02-19 | Outpatient (CLI) | payer BC ==
--- NOTE | 2021-02-19 13:40 | MM ---
Reason for exam: follow-up at short interval from prior study. Last mammogram was performed 6 months ago. History: Patient is postmenopausal and is nulliparous. Family history of breast cancer in mother at age 55. Physical Findings: Nurse did not find any significant physical abnormalities on exam. MG 3D Diag Mammo W/Cad LT CC and MLO view(s) were taken of the left breast. Prior study comparison: August 17, 2020, left breast MG 3d work up w/cad LT. August 09, 2020, bilateral MG 3d screening mammo w/cad. 7mm nodular asymmetric density central 6 o'clock left breast is unchanged for 6 months. These results were verbally communicated with the patient and result sheet given to the patient on 02/19/21. ASSESSMENT: Probably benign, BI-RAD 3 RECOMMENDATION: Follow-up diagnostic mammogram of both breasts in 6 months.
== END | disposition home or self-care (01) ==
LOC: RADMAMWWP 12:46
PROVIDERS: ATTEND Family Medicine
DX: R92.8 Other abnormal and inconclusive findings on diagnostic imaging of breast (principal)
CPT/HCPCS: 77061; 77065

== ENCOUNTER → 2021-08-30 | Outpatient (CLI) | payer BC ==
--- NOTE | 2021-09-02 08:42 | MM ---
Reason for exam: additional evaluation requested from prior study. Last mammogram was performed 6 months ago. History: Patient is postmenopausal and is nulliparous. Family history of breast cancer in mother at age 55. Physical Findings: Nurse did not find any significant physical abnormalities on exam. MG 3D Diag Mammo W/Cad AMOR Bilateral CC and MLO view(s) were taken. Prior study comparison: February 19, 2021, left breast MG 3d diag mammo w/cad LT. August 09, 2020, bilateral MG 3d screening mammo w/cad. July 08, 2019, bilateral MG 3d screening mammo w/cad. There are scattered fibroglandular densities. Focal asymmetry left breast 6 o'clock, stable. No significant new findings when compared with previous films. These results were verbally communicated with the patient and result sheet given to the patient on 08/30/21. ASSESSMENT: Benign, BI-RAD 2 RECOMMENDATION: Routine screening mammogram of both breasts in 1 year.
== END | disposition home or self-care (01) ==
LOC: RADMAMWWP 14:06
PROVIDERS: ATTEND Family Medicine
DX: R92.2 Inconclusive mammogram (principal); Z80.3 Family history of malignant neoplasm of breast; Z78.0 Asymptomatic menopausal state
CPT/HCPCS: 77062; 77066

== ENCOUNTER → 2021-09-30 | Outpatient (CLI) | payer BC ==
--- NOTE | 2021-09-30 15:40 | XR ---
EXAMINATION TYPE: XR foot complete LT DATE OF EXAM: 09/30/2021 CLINICAL HISTORY: pain TECHNIQUE: Frontal, lateral and oblique images of the left foot are obtained. COMPARISON: None. FINDINGS: There is no acute fracture/dislocation evident. The joint spaces appear within normal ram its. The overlying soft tissue appears unremarkable. IMPRESSION: There is no acute fracture or dislocation. ICD 10 NO FRACTURE, INITIAL EVALUATION
== END | disposition home or self-care (01) ==
LOC: RADXRYALE 15:13
PROVIDERS: ATTEND Physician Assistant
DX: M79.672 Pain in left foot (principal)

== ENCOUNTER → 2022-10-06 | Outpatient (CLI) | payer BC ==
--- NOTE | 2022-10-07 10:07 | MM ---
Reason for Exam: Screening (asymptomatic). Last mammogram was performed 1 year(s) and 2 month(s) ago. Patient History: Menarche at age 14. Patient has no children. Postmenopausal. Mother had breast cancer, age 55. Risk Values: Allyssa 5 year model risk: 2.2%. NCI Lifetime model risk: 15.8%. Prior Study Comparison: 08/17/2020 Left Diagnostic Mammogram, [facility]. 02/19/2021 Left Diagnostic Mammogram, [facility]. 08/30/2021 Bilateral Diagnostic Mammogram, [facility]. Tissue Density: There are scattered fibroglandular densities. Findings: Analyzed By CAD. There is no suspicious group of microcalcifications or new suspicious mass in either breast. No significant change from prior exams. Overall Assessment: Benign, BI-RAD 2 Management: Screening Mammogram of both breasts in 1 year. A clinical breast exam by your physician is recommended on an annual basis and results should be correlated with mammographic findings. Electronically signed and approved by: Panchito Rodriguez D.O.
== END | disposition home or self-care (01) ==
LOC: RADMAMWWP 08:38
PROVIDERS: ATTEND Family Medicine
DX: Z12.31 Encounter for screening mammogram for malignant neoplasm of breast (principal); Z78.0 Asymptomatic menopausal state; Z80.3 Family history of malignant neoplasm of breast
CPT/HCPCS: 77063; 77067

== ENCOUNTER 2023-04-12 14:43 | Emergency (ER) | payer BC ==
--- NOTE | 2023-04-12 15:38 | ED ---
Upper Extremity HPI - General Source: patient Mode of arrival: ambulatory Limitations: no limitations <Huma Keene - Last Filed: 04/12/23 15:28> - General Source: patient Limitations: no limitations <Taiwo Andrade - Last Filed: 04/12/23 17:22> - General Chief Complaint: Extremity Injury, Upper Stated Complaint: Left shoulder pain Time Seen by Provider: 04/12/23 15:28 - History of Present Illness Initial Comments: Patient is a 57-year-old female presenting to the emergency room with complaints of left shoulder and upper arm pain that began suddenly after falling while attempting to sit at her kitchen barstool earlier today. She reports landing wedge next to her refrigerator onto her shoulder and then onto her upper arm. She reports since that time she has had significant pain in her shoulder and arm with difficulty with range of motion. She is concerned that her shoulder may be dislocated. She does report hearing a pop at the time the fall. She denies any head injury. She denies any headache, dizziness, injury to any other extremity or other complaints or concerns at this time. (Huma Keene) Patient is a pleasant 7-year-old female presenting to the emergency department with concerns with left shoulder pain. Patient states prior to arrival she was sitting on a stool that her dog knocked her off her. Patient landed backwards into the wall with her left shoulder/arm. Patient is having discomfort in that area since that time. Discomfort greatly increases with any movement. Discomfort is mostly left upper arm. (Taiwo Andrade) - Related Data Home Medications Medication Instructions Recorded Confirmed Glimepiride 4 mg PO BID 09/02/14 01/14/17 metFORMIN HCL [Glucophage] 1,000 mg PO BID 09/02/14 01/14/17 Ergocalciferol [Vitamin D2 50,000 unit PO Q7D 01/06/17 01/14/17 (DRISDOL)] Pioglitazone [Actos] 45 mg PO DAILY 01/06/17 01/14/17 Pregabalin [Lyrica] 75 mg PO DAILY 01/06/17 01/14/17 Vitamin B Complex 1 cap PO DAILY 01/06/17 01/14/17 Previous Rx's Medication Instructions Recorded HYDROcodone/APAP 7.5-325MG [[place] 1 each PO Q6HR PRN #90 tab 01/16/17 7.5-325] Ibuprofen [Motrin] 600 mg PO Q6HR PRN #20 tab 04/12/23 Allergies Allergy/AdvReac Type Severity Reaction Status Date / Time No Known Allergies Allergy Verified 04/12/23 15:04 Review of Systems ROS Other: All systems not noted in ROS Statement are negative. <Huma Keene - Last Filed: 04/12/23 15:28> ROS Other: All systems not noted in ROS Statement are negative. Constitutional: Denies: fever Eyes: Denies: eye pain ENT: Denies: ear pain Respiratory: Denies: cough Cardiovascular: Denies: chest pain Endocrine: Denies: fatigue Gastrointestinal: Denies: abdominal pain Musculoskeletal: Reports: as per HPI Skin: Denies: rash Neurological: Denies: weakness <Taiwo Andrade - Last Filed: 04/12/23 17:22> ROS Statement: Those systems with pertinent positive or pertinent negative responses have been documented in the HPI. Past Medical History Past Medical History: Diabetes Mellitus, Eye Disorder Additional Past Medical History / Comment(s): TYPE 2 DM, UTI' INPAST, RETINOPATHY History of Any Multi-Drug Resistant Organisms: None Reported Past Surgical History: No Surgical Hx Reported Additional Past Surgical History / Comment(s): AMOR EYE SURG. LAMINECTOMY 2015. TEETH EXTRACTIONS. Past Anesthesia/Blood Transfusion Reactions: No Reported Reaction Past Psychological History: No Psychological Hx Reported Smoking Status: Current every day smoker Past Alcohol Use History: Rare Past Drug Use History: None Reported - Past Family History Mother Family Medical History: Cancer <Huma Keene - Last Filed: 04/12/23 15:28> General Exam Limitations: no limitations <Huma Keene - Last Filed: 04/12/23 15:28> Limitations: physical limitation (Limited range of motion left shoulder secondary to pain) General appearance: alert, in no apparent distress Head exam: Present: atraumatic Eye exam: Present: normal appearance, PERRL, EOMI ENT exam: Present: normal exam Neck exam: Present: normal inspection. Absent: tenderness Respiratory exam: Present: normal lung sounds bilaterally Cardiovascular Exam: Present: regular rate, normal rhythm Expanded Peripheral pulses: 2+: Radial (L) GI/Abdominal exam: Present: soft. Absent: distended, tenderness Extremities exam: Present: tenderness ((Proximal humerus. Distally the extremity is neurovascularly intact.). Absent: full ROM (Limited left shoulder secondary to pain) Back exam: Present: normal inspection. Absent: tenderness Neurological exam: Present: alert. Absent: motor sensory deficit Psychiatric exam: Present: normal affect, normal mood Skin exam: Present: normal color <Taiwo Andrade - Last Filed: 04/12/23 17:22> - General Exam Comments Initial Comments: Visual Physical Exam Vital signs reviewed General: Well-appearing, nontoxic, no acute distress. Head: Normocephalic, atraumatic Eyes: PERRLA, EOMI ENT: Airway patent Chest: Nonlabored breathing Skin: No visual rash, normal skin tone Neuro: Alert and oriented 3 Musculoskeletal: No gross abnormalities (Huma Keene) Course Vital Signs 04/12/23 15:02 Temperature 98 F Pulse Rate 86 Respiratory 20 Rate Blood Pressure 136/79 O2 Sat by Pulse 99 Oximetry Medical Decision Making <Taiwo Andrade - Last Filed: 04/12/23 17:22> - Medical Decision Making Was pt. sent in by a medical professional or institution (Dr. PA, TOW MATE, urgent care, hospital, or senior care...) When possible be specific @ -No Did you speak to anyone other than the patient for history (EMS, parent, family, police, friend...)? What history was obtained from this source @ -Family is present and helps provide history including a fall Did you review nursing and triage notes (agree or disagree)? Why? @ -I reviewed and agree with nursing and triage notes Were old charts reviewed (outside hosp., previous admission, EMS record, old EKG, old radiological studies, urgent care reports/EKG's, senior care records)? Report findings @ -No old charts were reviewed Differential Diagnosis (chest pain, altered mental status, abdominal pain women, abdominal pain men, vaginal bleeding, weakness, fever, dyspnea, syncope, headache, dizziness, GI bleed, back pain, seizure, CVA, palpatations, mental health)? @ -not applicable EKG interpreted by me (3pts min.). @ -As above X-rays interpreted by me (1pt min.). @ -Left shoulder and humerus x-ray shows proximal humerus fracture CT interpreted by me (1pt min.). @ -None done U/S interpreted by me (1pt. min.). @ -None done What testing was considered but not performed or refused? (CT, X-rays, U/S, labs)? Why? @ -None What meds were considered but not given or refused? Why? @ -None Did you discuss the management of the patient with other professionals (professionals i.e. , PA, TOW MATE, lab, RT, psych nurse, drug abuse social worker, fish warden, teacher, telecommunications officer, block and case maker)? Give summary @ -No Was smoking cessation discussed for >3mins.? @ -No Was critical care preformed (if so, how long)? @ -No Were there social determinants of health that impacted care today? How? (Homelessness, low income, unemployed, alcoholism, drug addiction, transportation, low edu. Level, literacy, decrease access to med. care, fci, rehab)? @ -No Was there de-escalation of care discussed even if they declined (Discuss DNR or withdrawal of care, Hospice)? DNR status @ -No What co-morbidities impacted this encounter? (DM, HTN, Smoking, COPD, CAD, Cancer, CVA, ARF, Chemo, Hep., AIDS, mental health diagnosis, sleep apnea, morbid obesity)? @ -None Was patient admitted / discharged? Hospital course, mention meds given and route, prescriptions, significant lab abnormalities, going to OR and other pertinent info. @ -Patient reevaluated. Patient and family updated. Patient will be discharged with orthopedic follow-up. Patient provided sling and pain medication. Undiagnosed new problem with uncertain prognosis? @ -No Drug Therapy requiring intensive monitoring for toxicity (Heparin, Nitro, Insulin, Cardizem)? @ -No Were any procedures done? @ -No Diagnosis/symptom? @ -Left proximal humerus fracture Acute, or Chronic, or Acute on Chronic? @ -Acute Uncomplicated (without systemic symptoms) or Complicated (systemic symptoms)? @ -default Side effects of treatment? @ -No Exacerbation, Progression, or Severe Exacerbation? @ -No Poses a threat to life or bodily function? How? (Chest pain, [place], [place], pneumonia, PE, COPD, DKA, ARF, appy, cholecystitis, CVA, Diverticulitis, Homicidal, Suicidal, threat to staff... and all critical care pts) @ -No (Taiwo Andrade) Disposition <Huma Keene - Last Filed: 04/12/23 15:28> Is patient prescribed a controlled substance at d/c from ED?: No Time of Disposition: 17:22 <Taiwo Anrdade - Last Filed: 04/12/23 17:22> Clinical Impression: Proximal humerus fracture Disposition: HOME SELF-CARE Condition: Stable Instructions (If sedation given, give patient instructions): Arm Fracture in Adults (ED) Additional Instructions: Prescription sent to pharmacy. Ice to affected area. Use sling. Please follow-up with orthopedics this week. No use of left arm until released by orthopedics. Return for increased pain, arm problems, weakness, worsening symptoms or other concerns. Prescriptions: Ibuprofen [Motrin] 600 mg PO Q6HR PRN #20 tab PRN Reason: Pain Referrals: [place] Mcdonald DO [Primary Care Provider] - 1-2 days
--- NOTE | 2023-04-12 17:05 | XR ---
EXAMINATION TYPE: XR shoulder complete 3 views LT, XR humerus 2 views LT DATE OF EXAM: 04/12/2023 Comparison: None Clinical History: 57-year-old female with fall and pain Findings: Left shoulder: Mild degenerative change at the AC joint. Subacromial space is preserved. There is an oblique fractur e at the level of the surgical neck with minimal lateral and posterior displacement by 6 mm. Possible underlying hemorrhagic deformity relating to prior traumatic anterior shoulder dislocation. Correlat e with patient's history. Left humerus: No acute fracture is seen of the more mid to distal humerus. Impression: 1. Left shoulder: Only surgical neck fracture with mild 6 mm of displacement. 2. Left shoulder: Question Hill-Sachs deformity. Correlate for any history of prior traumatic shoulde r dislocation. 3. Humerus: No additional acute fracture of the more mid to distal humerus.
[2023-04-12] MEDS ORDERED: HYDROmorphone 1 MG/ML 1 ML SYRINGE IM STA (17:22)
[2023-04-12] MEDS ORDERED: ACET/COD 300 MG/30 MG STARTER PACK 6 TAB BTL PO STA (17:22)
[2023-04-12 18:00] VITALS: BP 119/80; PULSE 97; RESP 18; TEMP 97.8
== END 2023-04-12 17:58 | disposition home or self-care (01) ==
LOC: EC 14:43
DX: S42.202A Unspecified fracture of upper end of left humerus, initial encounter for closed fracture (principal); E11.9 Type 2 diabetes mellitus without complications; F17.200 Nicotine dependence, unspecified, uncomplicated; Z79.84 Long term (current) use of oral hypoglycemic drugs; W19.XXXA Unspecified fall, initial encounter
CPT/HCPCS: 73030; 73060; 99283; 96372; J1170

== ENCOUNTER → 2023-10-27 | Outpatient (CLI) | payer BC ==
--- NOTE | 2023-10-28 12:22 | MM ---
Reason for Exam: Screening (asymptomatic). Last screening mammogram was performed 12 month(s) ago. Patient History: Menarche at age 14. Patient has no children. Postmenopausal. Mother had breast cancer, age 55. Risk Values: Allyssa 5 year model risk: 2.3%. NCI Lifetime model risk: 15.5%. Prior Study Comparison: 02/19/2021 Left Diagnostic Mammogram, [facility]. 08/30/2021 Bilateral Diagnostic Mammogram, [facility]. 10/06/2022 Bilateral MG 3D screening mammo w/cad, [facility]. Tissue Density: The breast tissue is almost entirely fat. Findings: Analyzed By CAD. There is no suspicious group of microcalcifications or new suspicious mass. Overall Assessment: Negative, BI-RAD 1 Management: Screening Mammogram of both breasts in [address] [facility] will attempt to contact patient to return for supplemental views and ultrasound if indicated. Patient should continue monthly self-breast exams. A clinical breast exam by your physician is recommended on an annual basis. This exam should not preclude additional follow-up of suspicious palpable abnormalities. Note on Allyssa scores and lifetime risk: 1. A Allyssa score greater than 3% is considered moderate risk. If this is the case, consider specialist referral to assess eligibility for a risk reducing agent. 2. If overall lifetime risk for the development of breast cancer is 20% or higher, the patient may qualify for future screening with alternating mammogram and breast MRI. Electronically signed and approved by: Mitchel Cason DO
== END | disposition home or self-care (01) ==
LOC: RADMAMWWP 12:15
PROVIDERS: ATTEND Family Medicine
DX: Z12.31 Encounter for screening mammogram for malignant neoplasm of breast (principal); Z80.3 Family history of malignant neoplasm of breast; Z78.0 Asymptomatic menopausal state
CPT/HCPCS: 77063; 77067

== ENCOUNTER → 2024-12-30 | Outpatient (CLI) | payer BC ==
--- NOTE | 2024-12-30 14:42 | MM ---
Reason for Exam: Screening (asymptomatic). Last mammogram was performed 1 year(s) and 2 month(s) ago. Patient History: Menarche at age 14. Patient has no children. Postmenopausal. Mother had breast cancer, age 55. Risk Values: Allyssa 5 year model risk: 2.5%. NCI Lifetime model risk: 14.9%. Prior Study Comparison: 08/30/2021 Bilateral Diagnostic Mammogram, [facility]. 10/06/2022 Bilateral MG 3D screening mammo w/cad, [facility]. 10/27/2023 Bilateral MG 3D screening mammo w/cad, [facility]. Tissue Density: There are scattered areas of fibroglandular density. Findings: Analyzed By CAD. Right breast: There is no suspicious group of microcalcifications or new suspicious mass. Left breast: There is no suspicious group of microcalcifications or new suspicious mass. Overall Assessment: Negative, BI-RAD 1 Management: Screening Mammogram of both breasts in [address] [facility] will attempt to contact patient to return for supplemental views and ultrasound if indicated. Patient should continue monthly self-breast exams. A clinical breast exam by your physician is recommended on an annual basis. This exam should not preclude additional follow-up of suspicious palpable abnormalities. Note on Allyssa scores and lifetime risk: 1. A Allyssa score greater than 3% is considered moderate risk. If this is the case, consider specialist referral to assess eligibility for a risk reducing agent. 2. If overall lifetime risk for the development of breast cancer is 20% or higher, the patient may qualify for future screening with alternating mammogram and breast MRI. [facility], , 12/30/2024 2:38 PM. Electronically signed and approved by: Mitchel Cason DO
== END | disposition home or self-care (01) ==
LOC: RADMAMWWP 13:42
PROVIDERS: ATTEND Family Medicine
DX: Z12.31 Encounter for screening mammogram for malignant neoplasm of breast (principal); R92.323 Mammographic fibroglandular density, bilateral breasts; Z78.0 Asymptomatic menopausal state; Z80.3 Family history of malignant neoplasm of breast
CPT/HCPCS: 77063; 77067